=== PATIENT | female | born 1995 | race Caucasian/White ===

== ENCOUNTER 2020-03-31 12:37 | Outpatient (REF) | payer OTHER, SELFPAY ==
[2020-03-31 13:58] LABS: MANUAL DIFF FLAG NO
[2020-03-31 14:04] LABS: Basophils Percent Auto 0.6 % (0-2); Eosinophils Absolute Auto 0.2 X10*3/uL (0.0-0.4); Eosinophils Percent Auto 3.1 % (0-4); Hematocrit 41.1 % (37-47); Hemoglobin 13.6 g/dl (12.0-16.0); Imm Gran Abs Auto 0.02 X10*3/uL (0.00-0.03); Imm Gran Pct Auto 0.4 % (0.0-0.4); Lymphocytes Absolute Auto 2.4 X10*3/uL (1.2-4.9); Lymphocytes Percent Auto 43.9 % (20-40); Mean Corpuscular HGB Conc 33.1 g/dl (31.0-35.0); Mean Corpuscular Hemoglobin 30.4 pg (27.0-33.0); Mean Corpuscular Volume 91.7 fL (80-98); Monocytes Absolute Auto 0.3 X10*3/uL (0.1-1.2); Monocytes Percent Auto 5.7 % (2-11); Neutrophils Absolute Auto 2.5 X10*3/uL (2.0-8.3); Neutrophils Percent Auto 46.3 % (45-73); Platelet Count 320 X10*3/uL (160-400); Red Blood Count 4.48 X10*6/uL (4.20-5.50); Red Cell Distribution Width 11.9 % (11.0-16.0); White Blood Count 5.4 X10*3/uL (4.8-10.8)
[2020-03-31 14:43] LABS: Alanine Aminotransferase 7 U/L (0-31); Anion Gap 15 (12-20); Aspartate Amino Transferase 12 U/L (5-31); Blood Urea Nitrogen 13 mg/dL (9-16); Calcium 9.3 mg/dL (8.4-10.2); Carbon Dioxide 24 mmol/L (22-29); Chloride 106 mmol/L (96-108); Cholesterol 201 mg/dL; Estimated Glomerular Filt Rate > 60; Glucose Fasting 92 mg/dL (60-99); HDL Cholesterol 55 mg/dL; LDL Cholesterol Calculated 134 mg/dl; Potassium 4.3 mmol/l (3.3-5.1); Sodium 141 mmol/L (135-145); Triglycerides 64 mg/dL
[2020-03-31 14:47] LABS: Vitamin D 25-OH Total 43.9 ng/mL (>30)
== END 2020-03-31 12:38 | disposition home or self-care (01) ==
LOC: HO.HMGCLDS 12:37
PROVIDERS: PCP Internal Medicine; Visit Provider Internal Medicine
DX: Z00.01 Encounter for general adult medical examination with abnormal findings (principal); I10 Essential (primary) hypertension; E55.9 Vitamin D deficiency, unspecified
CPT/HCPCS: 36415; 80048; 80061; 82306; 84450; 84460; 85025

== ENCOUNTER 2020-08-27 08:38 | Outpatient (REF) | payer BC, SELFPAY ==
--- NOTE | ~2020-08-27 | XR_ITS ---
EXAMINATION: XR FINGER, RIGHT CLINICAL INFORMATION: Localized swelling, mass or lump right upper limb. COMPARISON: None. TECHNIQUE: 3 views of the right thumb. FINDINGS: There are small bone fragments seen adjacent to the base of proximal phalanx 1st digit at the MCP joint, likely from recent or old fracture. There is mild soft tissue swelling. The MCP joint space is preserved. The rest of the left thumb is unremarkable.. XR/XR finger RT min 2V IMPRESSION: Small fragments seen at the base of the proximal phalanx 1st digit, likely new versus old fracture fragments. There is mild soft tissue swelling, likely from acute event. Correlate with clinical history. The rest of the left thumb is unremarkable.
== END 2020-08-27 08:39 | disposition home or self-care (01) ==
LOC: HO.HMGCX 08:38
PROVIDERS: PCP Internal Medicine; Visit Provider Nurse Practitioner Family
DX: R22.31 Localized swelling, mass and lump, right upper limb (principal)
CPT/HCPCS: 73140

== ENCOUNTER 2020-09-18 05:35 | Outpatient (REF) | payer OTHER, SELFPAY ==
--- NOTE | ~2020-09-18 | XR_ITS ---
EXAMINATION: XR HAND, RIGHT CLINICAL INFORMATION: Right hand pain. COMPARISON: Right finger radiographs dated 08/27/2020. TECHNIQUE: PA, lateral, and oblique views of the right hand. FINDINGS: Redemonstration of osseous fragments adjacent to the base of the 1st proximal phalanx with unchanged anatomic alignment. No new fracture or dislocation. No joint space narrowing or marginal osteophytes. No osseous erosion. XR/XR hand RT min 3V IMPRESSION: Osseous fragments redemonstrated adjacent to the base of the 1st proximal phalanx in unchanged anatomic alignment.
== END 2020-09-18 05:36 | disposition home or self-care (01) ==
LOC: HO.HOSX 05:35
PROVIDERS: Visit Provider Physician Assistant
DX: S62.501A Fracture of unspecified phalanx of right thumb, initial encounter for closed fracture (principal); R22.31 Localized swelling, mass and lump, right upper limb; X58.XXXA Exposure to other specified factors, initial encounter; Y93.9 Activity, unspecified; Y92.9 Unspecified place or not applicable; Y99.9 Unspecified external cause status
CPT/HCPCS: 73130; 99202

== ENCOUNTER 2021-07-02 08:00 | Outpatient (REF) | payer OTHER, SELFPAY ==
[2021-07-02 08:33] LABS: IDNOW Serial# 16C4AD1C
[2021-07-02 08:34] LABS: COVID-19 Test Positive (Negative)
== END 2021-07-02 08:01 | disposition home or self-care (01) ==
LOC: HO.LAB 08:00
PROVIDERS: Visit Provider Internal Medicine
DX: Z20.822 Contact with and (suspected) exposure to COVID-19 (principal)
CPT/HCPCS: 87635; C9803

== ENCOUNTER 2022-03-19 09:11 | Outpatient (REF) | payer OTHER, SELFPAY ==
[2022-03-19 11:38] LABS: MANUAL DIFF FLAG NO
[2022-03-19 11:47] LABS: Basophils Percent Auto 0.7 % (0-2); Eosinophils Absolute Auto 0.2 X10*3/uL (0.0-0.4); Eosinophils Percent Auto 3.1 % (0-4); Hematocrit 43.4 % (37.0-47.0); Hemoglobin 14.5 g/dl (12.0-16.0); Imm Gran Abs Auto 0.02 X10*3/uL (0.00-0.03); Imm Gran Pct Auto 0.3 % (0.0-0.4); Lymphocytes Percent Auto 32.4 % (20-40); Mean Corpuscular HGB Conc 33.4 g/dl (31.0-35.0); Mean Corpuscular Hemoglobin 29.7 pg (27.0-33.0); Mean Corpuscular Volume 88.9 fL (80.0-98.0); Mean Platelet Volume 9.8 fL (9.4-12.3); Monocytes Absolute Auto 0.5 X10*3/uL (0.1-1.2); Neutrophils Absolute Auto 3.4 x10*3/uL (2.0-8.3); Neutrophils Percent Auto 55.5 % (45-73); Platelet Count 384 X10*3/uL (160-400); Red Blood Count 4.88 X10*6/uL (4.20-5.50); Red Cell Distribution Width 11.6 % (11.0-16.0); White Blood Count 6.1 X10*3/uL (4.8-10.8)
[2022-03-19 12:08] LABS: Alanine Aminotransferase 6 U/L (0-31); Anion Gap 13 (12-20); Aspartate Amino Transferase 13 U/L (5-31); Blood Urea Nitrogen 8 mg/dL (9-16); Calcium 9.4 mg/dL (8.4-10.2); Carbon Dioxide 26 mmol/L (22-29); Chloride 106 mmol/L (96-108); Cholesterol 194 mg/dL; Estimated Glomerular Filt Rate > 60; Glucose Fasting 91 mg/dL (60-99); HDL Cholesterol 60 mg/dL; LDL Cholesterol Calculated 126 mg/dl; Sodium 141 mmol/L (135-145); Triglycerides 41 mg/dL
[2022-03-19 12:28] LABS: Vitamin D 25-OH Total 41.9 ng/mL (>30)
== END 2022-03-19 09:12 | disposition home or self-care (01) ==
LOC: HO.HMGCLDS 09:11
PROVIDERS: PCP Internal Medicine; Visit Provider Internal Medicine
DX: Z00.01 Encounter for general adult medical examination with abnormal findings (principal); E55.9 Vitamin D deficiency, unspecified; G43.909 Migraine, unspecified, not intractable, without status migrainosus
CPT/HCPCS: 36415; 80048; 80061; 82306; 84450; 84460; 85025

== ENCOUNTER 2022-04-23 10:37 | Outpatient (AMB) | payer OTHER, SELFPAY ==
[2022-04-23 10:38] VITALS: BP 98/60; PULSE 96; O2SAT 98; BMI 26.1
--- NOTE | 2022-04-23 10:38 | MHC.PC.OV ---
Vital Signs 04/23/22 10:38 Height 5 ft 4 in Weight 152 lb BMI 26.1 BP 98/60 Blood Pressure Location Rt brachial Position Sitting Pulse 96 Pulse Source Pulse Oximeter Pulse Oximetry (%) 98 Oxygen Delivery Method Room Air Intake Visit Reasons: Transfer from [facility] in Intake Note: Pt is here today c/o UTI: burning sensation upon urination x1day Allergies house dust mite Allergy (Unknown, Verified 06/06/23 11:51) hives cats Allergy (Unknown, Uncoded 06/06/23 11:51) Sneezing Medication List - Last Reconciled 06/14/23 by Yamel Monroy MD albuterol sulfate 90 mcg/actuation 2 puffs inhalation Q6H PRN uzxmbai-minoflfffjozo-ltakjzda 250-250-65 mg (Excedrin Migraine) 1 tab PO Q4-6H PRN calcium carbonate-vitamin D3 600 mg-10 mcg (400 unit) caps PO etonogestrel (Nexplanon) subdermal sertraline 50 mg PO DAILY Tobacco use date assessed: 04/23/22 [facility] Transfer from [facility] Details 28-year-old lady here today for follow-up on her depression, started on sertraline 50 mg once a day a month ago. States that she has been feeling better, mood improved on sertraline denies any adverse effects from medication. Complains of urinary frequency urgency and dysuria present for the last 3 days, denies any accompanying fever, but does have discomfort over suprapubic area. [facility] Medical History (Updated 06/14/23 @ 13:58 by Yamel Monroy MD) Depression Fracture of thumb, closed Acne Vitamin D deficiency Migraine Surgical History Hx of tonsillectomy Family History Father No problems noted. Mother No problems noted. Maternal Grandmother Lung cancer Maternal Grandmother Cancer Paternal Grandfather CVD (cardiovascular disease) History of heart surgery Paternal Grandmother CVD (cardiovascular disease) History of heart surgery Brother No problems noted. Sister No problems noted. Social History Housing: House Alcohol intake: current Alcohol intake frequency: a few times a week Patient Tobacco Use Status: Never used Tobacco e-Cigarette/Vaping Use: Never Used service: No Current occupational status: employed Current occupation: left hand/ Dietitian aide Cognitive needs: No Hearing needs: No Vision needs: Yes Questionnaire PHQ-9 Over the last 2 weeks, how often have you been bothered by any of the following problems? 1. Little interest or pleasure in doing things: not at all 2. Feeling down, depressed, or hopeless: not at all 3. Trouble falling or staying asleep, or sleeping too much: several days 4. Feeling tired or having little energy: not at all 5. Poor appetite or overeating: not at all 6. Feeling bad about yourself - or that you are a failure or have let yourself or your family down: not at all 7. Trouble concentrating on things, such as reading the newspaper or watching television: not at all 8. Moving or speaking so slowly that other people could have noticed. Or the opposite - being so fidgety or restless that you have been moving around a lot more than usual: not at all 9. Thoughts that you would be better off or of hurting yourself in some way: not at all Total score: 1 Depression Screening Interpretation: Positive (Mood improved on sertraline) Depression Screening Follow-up: Existing condition and In treatment 18944 - PHQ-9 Billing: Yes Source: Developed by Drs. West Cifuentes, Irena Mike, Сергей Radford and colleagues, with an educational steve from [employer]. Thrive Questionnaire Date Thrive assessed: 03/19/22 MIRNA-7 AMB Questionnaire MIRNA-7 Date MIRNA - 7 assessed: 03/19/22 Source: Developed by Drs. West Cifuentes, Irena Mike, Сергей Radford and colleagues, with an educational steve from [employer]. Review of Systems Const All systems reviewed & are unremarkable except as noted in HPI and below Physical exam (Primary Care) Vital Signs: Last Vital Signs Pulse 96 04/23/22 10:38 BP 98/60 04/23/22 10:38 Pulse Ox 98 04/23/22 10:38 Oxygen Delivery Method Room Air 04/23/22 10:38 BMI result Body Mass Index 26.1 Tobacco/Smoking Status: Tobacco use Status Tobacco use date assessed 04/23/22 04/23/22 10:51 Patient Tobacco Use Status Never used Tobacco 04/23/22 10:39 e-Cigarette/Vaping Use Never Used 04/23/22 10:39 Depression Screening Interpretation: Positive (Mood improved on sertraline) Depression Screening Follow-up: Existing condition and In treatment Thrive Assessment: Date of Thrive Assessment Date Thrive assessed 03/19/22 04/23/22 10:39 Const Other: Alert oriented x3, no acute distress noted ambulatory normal gait HENMT Face and sinus: Yes face symmetric Mouth: moist mucous membranes Neck Neck: Yes full ROM, Yes no lymphadenopathy and Yes supple Thyroid: Thyroid normal Resp Auscultation: clear to auscultation bilaterally Cardio Other: S1-S2 present regular rate and rhythm GI Palpation (GI): Soft to palpation, nontender and no guarding Auscultation: normal bowel sounds General: Yes no CVA tenderness Back/Spine/Pelvis Back: no CVA tenderness Psych Appearance: grossly normal and well kempt Mental Status: mental status grossly normal Speech and movement: Normal speech and movement present Affect: normal affect Attitude: cooperative Thought process: Normal thought process present Thought content: Normal thought content present Results AMB Urinalysis Dipstick UR Leukocytes Last Edit by Anila Cai CMA on 04/23/22 10:46 UR Nitrite Negative Last Edit by Anila Cai CMA on 04/23/22 10:46 UR Urobilinogen 2 Last Edit by Anila Cai CMA on 04/23/22 10:46 UR Protein 30 Last Edit by Anila Cai CMA on 04/23/22 10:46 UR Ph 7.5 Last Edit by Anila Cai CMA on 04/23/22 10:46 UR Blood Large Last Edit by Anila Cai CMA on 04/23/22 10:46 UR Specific [place] 1.000 Last Edit by Anila Cai CMA on 04/23/22 10:46 UR Ketone Small Last Edit by Anila Cai CMA on 04/23/22 10:46 UR Bilirubin Small Last Edit by Anila Cai CMA on 04/23/22 10:46 UR Glucose Negative Last Edit by Anila Cai CMA on 04/23/22 10:46 Results Reviewed Results Reviewed: Laboratory Last Values Urine pH (Clinic) 7.5 04/23/22 10:44 Specific [place] (Clinic) 1.000 04/23/22 10:44 Ur Protein (Clinic) 30 04/23/22 10:44 Ur Ketones (Clinic) Small 04/23/22 10:44 Urine Blood (Clinic) Large 04/23/22 10:44 Urine Nitrite Negative 04/23/22 10:44 Urine Bilirubin (Clinic) Small 04/23/22 10:44 Urobilinogen (Clinic) 2 04/23/22 10:44 Urine Glucose (Clinic) Negative 04/23/22 10:44 Assessment and Plan Assessment & Plan (1) Depression: Code(s): F32.A - Depression, unspecified Qualifiers: Depression Type: reactive depression Qualified Code(s): F32.9 - Major depressive disorder, single episode, unspecified Plan: Doing well on sertraline, continued on present medication. (2) UTI (urinary tract infection): Code(s): N39.0 - Urinary tract infection, site not specified Qualifiers: Urinary tract infection type: acute cystitis Hematuria presence: with hematuria Qualified Code(s): N30.01 - Acute cystitis with hematuria Plan: Urine dipstick showed presence of urinary tract infection, prescription sent for Bactrim DS to take 1 tablet every 12 hours for 7 days, and prescription also sent for phenazopyridine 100 mg per tablet to take 1 tablet 3 times a day for 1 day only Orders: Orders AMB Urinalysis Dipstick 04/23/22 Z13.9 - Encounter for screening, unspecified Medications: New sulfamethoxazole-trimethoprim 800-160 mg (Bactrim DS) 1 tab PO Q12H 14 tabs 0RF phenazopyridine 100 mg PO TID 3 tabs 0RF Coding Level of Care Code Est Pt Level 3 (39553) Diagnoses Reactive depression F32.9 Depression Type: reactive depression Acute cystitis with hematuria N30.01 Urinary tract infection type: acute cystitis Hematuria presence: with hematuria
== END 2022-04-23 11:17 | disposition home or self-care (01) ==
PROVIDERS: PCP Internal Medicine; Visit Provider Internal Medicine
DX: F32.9 Major depressive disorder, single episode, unspecified (principal); N30.01 Acute cystitis with hematuria
CPT/HCPCS: 99499

== ENCOUNTER 2022-12-30 15:25 | Outpatient (AMB) | payer OTHER, SELFPAY ==
[2022-12-30 15:27] VITALS: BP 122/68; PULSE 98; TEMP 36.4; O2SAT 96; BMI 29.9
--- NOTE | 2022-12-30 15:27 | AM.OFFWIN_ITS ---
Intake Vital Signs 12/30/22 15:27 Height 5 ft 4 in Weight 174 lb 8 oz BMI 29.9 BP 122/68 Blood Pressure Location Rt brachial Position Sitting Pulse 98 Pulse Source Pulse Oximeter Temp 97.6 F Temp Source Temporal Artery Scan Pulse Oximetry (%) 96 Oxygen Delivery Method Room Air Intake Visit Reasons: EST/cold symp since tuesday(lobby masked) Intake Note: Pt presents to the office today for c/o cold symptoms. Pt states she has a cough,chest congestion, sinus pressure which started 12/25/22. Pt states he also has ear pain, and dizziness which started a few days ago. Patient Tobacco Use Status: Never used Tobacco Allergies house dust mite Allergy (Unknown, Verified 12/30/22 15:34) hives cats Allergy (Unknown, Uncoded 12/30/22 15:34) Sneezing HPI HPI Comments History of Present Illness Details 27-year-old female that presents with co ugh congestion upper respiratory symptoms times 5 days denies fever chills PFSH Medical History Depression Annual visit for general adult medical examination with abnormal findings Fracture of thumb, closed Acne Vitamin D deficiency Migraine Surgical History Hx of tonsillectomy Family History Father No problems noted. Mother No problems noted. Maternal Grandmother Lung cancer Maternal Grandmother Cancer Paternal Grandfather CVD (cardiovascular disease) History of heart surgery Paternal Grandmother CVD (cardiovascular disease) History of heart surgery Brother No problems noted. Sister No problems noted. Social History (Updated 12/30/22 @ 15:36 by Gwen Shrestha MA) Housing: House Alcohol intake: current Alcohol intake frequency: a few times a week Patient Tobacco Use Status: Never used Tobacco e-Cigarette/Vaping Use: Never Used service: No Current occupational status: employed Current occupation: left hand/ Dietitian aide Cognitive needs: No Hearing needs: No Vision needs: Yes Review of Systems ENT Reports sore throat Resp Reports chest congestion, Reports cough and Reports excessive phlegm production Physical Exam Vital Signs: Last Vital Signs Temp 97.6 F 12/30/22 15:27 Pulse 98 10/26/23 15:27 BP 122/68 12/30/22 15:27 Pulse Ox 96 12/30/22 15:27 Oxygen Delivery Method Room Air 12/30/22 15:27 BMI result Body Mass Index 29.9 Const General: cooperative, no acute distress and alert Orientation/consciousness: patient oriented x3 Limitations: no limitations HEENT Head: Yes normal to inspection Ears: hearing grossly normal bilaterally and external ears normal General nose exam: Normal external nose present Eyes General: appearance normal, both eyes and all related structures Neck Neck: Yes normal visual inspection Chest Chest palpation & inspection: normal inspection of the chest Resp Effort & Inspection: normal respiratory effort, able to speak in complete sentences and no audible wheezes Auscultation: clear to auscultation bilaterally Cardio Rate: regular rate Rhythm: regular rhythm GI Inspection: Yes normal to inspection Palpation (GI): Soft to palpation and nontender Skin General skin exam: no rashes or lesions noted Neuro General: patient oriented x3 Psych Appearance: grossly normal Mental Status: mental status grossly normal Speech and movement: Normal speech and movement present Affect: normal affect Attitude: cooperative Thought process: Normal thought process present Thought content: Normal thought content present Assessment & Plan Assessment & Plan (1) URI (upper respiratory infection): Code(s): J06.9 - Acute upper respiratory infection, unspecified Qualifiers: URI type: unspecified URI Qualified Code(s): J06.9 - Acute upper respiratory infection, unspecified Plan: Signs symptoms consistent with viral URI will swab for COVID for RSV and influenza. Will provide symptomatic treatment. Discharge instructions, follow up and treatment are discussed with patient in my usual fashion. Alternatives in treatment are also discussed. The patient will return for worsening symptoms or as needed. Advised that any labs/imaging ordered will be followed up on and contact made if further treatment needed. Counseled that patient's condition may require further evaluation and/or treatment. Symptoms of concern for worsening disorder discussed in detail in my customary manner. Patient does verbalize understanding of the plan, there are no apparent barriers to communication. The patient is given the opportunity to ask questions and have them answered to his/her satisfaction Orders: Orders SARS-CoV2/FLU/RSV Today R05.9 - Cough, unspecified Medications: New albuterol sulfate 90 mcg/actuation 2 puffs inhalation Q6H PRN 8.5 grams 0RF alexis rtness of breath or wheezing prednisone 40 mg (2 x 20 mg) PO DAILY 5 days 10 tabs 0RF benzonatate 100 mg PO BID PRN 10 caps 0RF cough Coding Level of Care Code Est Pt Level 3 (28006) Diagnoses Upper respiratory tract infection, unspecified type J06.9 URI type: unspecified URI
== END 2022-12-30 16:22 | disposition home or self-care (01) ==
PROVIDERS: PCP Internal Medicine; Visit Provider Physician Assistant
DX: J06.9 Acute upper respiratory infection, unspecified (principal)
CPT/HCPCS: 99213

== ENCOUNTER 2022-12-30 16:17 | Outpatient (REF) | payer OTHER, SELFPAY ==
[2022-12-31 12:08] LABS: Influenza A PCR NEGATIVE (Negative); Influenza B PCR NEGATIVE (Negative); Resp Syncy Virus RNA Qual PCR NEGATIVE (Negative); SARS COV2 PCR INHOUSE NEGATIVE (Negative)
== END 2022-12-30 16:18 | disposition home or self-care (01) ==
LOC: HO.LAB 16:17
PROVIDERS: Visit Provider Physician Assistant
DX: R05.9 Cough, unspecified (principal); Z11.52 Encounter for screening for COVID-19
CPT/HCPCS: 0241U

== ENCOUNTER 2023-07-11 11:50 | Outpatient (AMB) | payer OTHER, SELFPAY ==
--- NOTE | 2023-06-06 11:51 | MHC.PC.OV ---
Vital Signs 06/06/23 11:51 Height 5 ft 4 in Intake Visit Reasons: Annual PE Intake Note: Pt is here today for PE. Allergies house dust mite Allergy (Unknown, Verified 06/06/23 11:51) hives cats Allergy (Unknown, Uncoded 06/06/23 11:51) Sneezing Tobacco use date assessed: 04/23/22 [facility] Medical History Depression Annual visit for general adult medical examination with abnormal findings Fracture of thumb, closed Acne Vitamin D deficiency Migraine Surgical History Hx of tonsillectomy Family History Father No problems noted. Mother No problems noted. Maternal Grandmother Lung cancer Maternal Grandmother Cancer Paternal Grandfather CVD (cardiovascular disease) History of heart surgery Paternal Grandmother CVD (cardiovascular disease) History of heart surgery Brother No problems noted. Sister No problems noted. Social History (Updated 12/30/22 @ 15:36 by Gwen Shrestha CMA) Housing: House Alcohol intake: current Alcohol intake frequency: a few times a week Patient Tobacco Use Status: Never used Tobacco e-Cigarette/Vaping Use: Never Used service: No Current occupational status: employed Current occupation: left hand/ Dietitian aide Cognitive needs: No Hearing needs: No Vision needs: Yes Questionnaire Thrive Questionnaire Date Thrive assessed: 03/19/22 MIRNA-7 AMB Questionnaire MIRNA-7 Date MIRNA - 7 assessed: 03/19/22 Source: Developed by Drs. West Cifuentes, Irena Mike, Сергей Radford and colleagues, with an educational steve from [employer]. Physical exam (Primary Care) Tobacco/Smoking Status: Tobacco use Status Tobacco use date assessed 04/23/22 04/23/22 10:51 Patient Tobacco Use Status Never used Tobacco 12/30/22 15:36 e-Cigarette/Vaping Use Never Used 12/30/22 15:36 Thrive Assessment: Date of Thrive Assessment Date Thrive assessed 03/19/22 04/23/22 10:39 Coding
[2023-07-11 11:54] VITALS: BP 108/68; PULSE 85; O2SAT 98; BMI 31.8
--- NOTE | 2023-07-11 11:54 | A.OFFPC_ITS ---
Vital Signs 06/06/23 11:51 07/11/23 11:54 Height 5 ft 4 in 5 ft 4 in Weight 185 lb BMI 31.8 BP 108/68 Blood Pressure Location Rt brachial Position Sitting Pulse 85 Pulse Source Pulse Oximeter Pulse Oximetry (%) 98 Oxygen Delivery Method Room Air Intake Visit Reasons: Annual PE Intake Note: Pt is here today for her annual physical. Last pap 12/19/19 Last flu shot 02/10/23 Allergies house dust mite Allergy (Unknown, Verified 07/11/23 12:35) hives cats Allergy (Unknown, Uncoded 07/11/23 12:35) Sneezing Medication List - Last Reconciled 07/11/23 by Yamel Monroy MD [id number] 250-250-65 mg (Excedrin Migraine) 1 tab PO Q4-6H PRN cholecalciferol (vitamin D3) 50 mcg PO DAILY etonogestrel (Nexplanon) subdermal sertraline 50 mg PO DAILY zaleplon 10 mg PO BEDTIME PRN Tobacco use date assessed: 07/11/23 Dental Screening Dental Screen Date: 07/11/23 Did you have a dental visit in the last 12 months?: Yes Did you have a dental problem in the last 6 months where you did not have access to dental care?: No Was dental information given to patient?: Patient has dentist HPI Annual PE HPI Details 28-year-old lady here today for physical exam. She goes [facility] for [facility] and pelvic exam, states that she had one at [facility] in 2021, results unavailable to me at present. She uses Nexplanon as a control, placed 2 years ago. She has depression currently stable and controlled on sertraline, now sees a psych provider online, Holger Renteria, who has also started her on zaleplon 10 mg at bedtime as needed for difficulty sleeping. And would like to continue to follow-up with him for her depression treatment.. She takes Excedrin for migraine headaches, which has been occurring infrequently [facility] Medical History Depression Fracture of thumb, closed Acne Vitamin D deficiency Migraine Surgical History Hx of tonsillectomy Family History Father No problems noted. Mother No problems noted. Maternal Grandmother Lung cancer Maternal Grandmother Cancer Paternal Grandfather CVD (cardiovascular disease) History of heart surgery Paternal Grandmother CVD (cardiovascular disease) History of heart surgery Brother No problems noted. Sister No problems noted. Social History Housing: House Alcohol intake: current Alcohol intake frequency: a few times a week Alcohol type: hard liquor Comment: Whiskoksana Patient Tobacco Use Status: Never used Tobacco e-Cigarette/Vaping Use: Never Used service: No Current occupational status: employed Current occupation: left hand/ Dietitian aide Cognitive needs: No Hearing needs: No Vision needs: Yes Female Reproductive History Menstrual Other: Goes to [facility] Questionnaire PHQ-9 Over the last 2 weeks, how often have you been bothered by any of the following problems? 1. Little interest or pleasure in doing things: not at all 2. Feeling down, depressed, or hopeless: not at all 3. Trouble falling or staying asleep, or sleeping too much: several days 4. Feeling tired or having little energy: not at all 5. Poor appetite or overeating: several days 6. Feeling bad about yourself - or that you are a failure or have let yourself or your family down: not at all 7. Trouble concentrating on things, such as reading the newspaper or watching television: not at all 8. Moving or speaking so slowly that other people could have noticed. Or the opposite - being so fidgety or restless that you have been moving around a lot more than usual: not at all 9. Thoughts that you would be better off or of hurting yourself in some way: not at all Total score: 2 Depression Screening Interpretation: Positive (Controlled on sertraline, currently sees psych/therapist, Holger Renteria) Depression Screening Follow-up: Existing condition, In treatment and Community Mental Health Worker F/U Depression Screening Done: Yes 37752 - PHQ-9 Billing: Yes Source: Developed by Drs. West Cifuentes, Irena Mike, Сергей Radford and colleagues, with an educational steve from [employer]. Thrive Questionnaire Date Thrive assessed: 07/11/23 I am a: Patient What is your living situation today?: I have a steady place to live Within the past 12 months, did the food you bought not last and you didn't have the money to get more?: Never true Within the past 12 months, did you worry whether your food would run out before you got money to buy more?: Never true Do you have trouble paying for medicines?: No Do you have trouble getting transportation to medical appointments?: No Do you have trouble paying your heating and electricity bill?: No Do you have trouble taking care of your child, family member or friend?: No Do you have trouble with day-to-day activities such as bathing, preparing meals, shopping, managing finances, etc.?: No Are you currently unemployed and looking for a job?: No Are you interested in more education?: No THRIVE Score: 0 AUDIT C Alcohol Use Questionnaire (AUDIT-C) 1. How often do you have a drink containing alcohol?: 2-4 times a month 2. How many drinks containing alcohol do you have on a typical day when you are drinking?: 1 or 2 3. How often do you have six or more drinks on one occasion?: Never Total Score: 2 Score Reviewed/Action Taken: Yes MIRNA-7 AMB Questionnaire MIRNA-7 Date MIRNA - 7 assessed: 07/11/23 Feeling nervous, anxious, or on edge: 0 = Not at all Not being able to stop or control worryin = Not at all Worrying too much about different things: 0 = Not at all Trouble relaxin = Not at all Being so restless that it is hard to sit still: 0 = Not at all Becoming easily annoyed or irritable: 0 = Not at all Feeling afraid as if something awful might happen: 0 = Not at all Total MIRNA-7 score (0-4 normal; 5-9 mild; 10-14 moderate; 15-21 severe): 0 Source: Developed by Drs. West Cifuentes, Irena Mike, Сергей Radford and colleagues, with an educational steve from [employer]. MIRNA-7 Assessment Billing MIRNA-7 Assessment Tool: MIRNA-7 Assessment 17216 Review of Systems Const Denies body aches, Denies fatigue, Denies fever(s) and Denies weakness Eyes Details: Sees [facility] Denies change in vision ENT Denies dizziness, Denies nasal congestion, Denies nasal discharge and Denies sore throat Card Denies chest pain, Denies lightheadedness, Denies palpitations and Denies dyspnea Resp Denies chest congestion, Denies cough, Denies dyspnea and Denies wheezing GI Denies abdominal pain, Denies change in bowel habits and Denies heartburn Details: Goes to [facility] for her routine Pap and pelvic exam, last Pap was in 2021, per patient Denies urinary frequency, Denies dysuria and Denies urinary urgency Musc Reports no additional complaints Skin/Breast Denies lesions and Denies rash Neuro Denies dizziness and Denies weakness Psych Reports as per HPI Endo Denies fatigue, Denies polydipsia, Denies polyuria and Denies palpitations Shaq/Lymph Denies easy bruising Aller/Immun Denies seasonal rhinorrhea and Denies wheezing Physical exam (Primary Care) Vital Signs: Last Vital Signs Pulse 85 07/11/23 11:54 BP 108/68 07/11/23 11:54 Pulse Ox 98 07/11/23 11:54 Oxygen Delivery Method Room Air 07/11/23 11:54 BMI result Body Mass Index 31.8 Tobacco/Smoking Status: Tobacco use Status Tobacco use date assessed 07/11/23 07/11/23 11:56 Patient Tobacco Use Status Never used Tobacco 07/11/23 12:41 e-Cigarette/Vaping Use Never Used 07/11/23 12:41 Depression Screening Interpretation: Positive (Controlled on sertraline, currently sees psych/therapist, Holger Renteria) Depression Screening Follow-up: Existing condition, In treatment and Community Mental Health Worker F/U Thrive Assessment: Date of Thrive Assessment Date Thrive assessed 03/19/22 07/11/23 11:56 Const Other: Alert oriented x3, no acute distress noted ambulatory normal gait Orientation/consciousness: patient oriented x3 HENMT Face and sinus: Yes face symmetric Mouth: moist mucous membranes Neck Neck: Yes full ROM, Yes no lymphadenopathy and Yes supple Thyroid: Thyroid normal Chest Chest palpation & inspection: normal inspection of the chest Breast/axilla inspection: normal inspection of the breasts Breast/axilla palpation: normal palpation of the breasts Resp Auscultation: clear to auscultation bilaterally Cardio Other: S1-S2 present regular rate and rhythm GI Palpation (GI): Soft to palpation, nontender and no guarding Auscultation: normal bowel sounds General: Yes no CVA tenderness Back/Spine/Pelvis Back: no CVA tenderness Skin General skin exam: no rashes or lesions noted Neuro General: patient oriented x3, gait normal, tone normal, moves all extremities, no focal motor deficits and CN's II-XI intact bilaterally Cognition (Neuro): normal cognition Gait exam (Neuro): Normal gait present Extrem General: Yes full ROM, Yes no joint enlargement, Yes no clubbing, cyanosis or edema, Yes no calf tenderness and Yes normal gait Psych Appearance: grossly normal and well kempt Mental Status: mental status grossly normal Speech and movement: Normal speech and movement present Affect: normal affect Attitude: cooperative Thought process: Normal thought process present Thought content: Normal thought content present Assessment and Plan Assessment & Plan (1) Migraine: Code(s): G43.909 - Migraine, unspecified, not intractable, without status migrainosus Qualifiers: Intractability: not intractable Migraine type: without aura Status migrainosus presence: without status migrainosus Qualified Code(s): G43.009 - Migraine without aura, not intractable, without status migrainosus Plan: Takes Excedrin tablets which has been helping (2) Depression: Code(s): F32.A - Depression, unspecified Qualifiers: Depression Type: reactive depression Qualified Code(s): F32.9 - Major depressive disorder, single episode, unspecified Plan: Now followed by Holger Renteria, currently stable and controlled on sertraline and on zaleplon for her insomnia (3) Annual visit for general adult medical examination with abnormal findings: Code(s): Z00.01 - Encounter for general adult medical examination with abnormal findings Plan: Will check appropriate labs. Continue dental visit every 6 months and regular eye exams, goes to [facility] Take adequate calcium in diet and vitamin-D 3 at 2000 IU per cap once a day, in addition to weight-bearing exercises to help maintain good muscle tone and weight control. Instructed to do self-breast exam, and recommended to get yearly mammogram, starting at age 40. Gets her routine Pap and pelvic exam from her [facility]. Up-to-date with all her vaccine Orders: Orders Basic Metabolic Panel Fasting Today E66.9 - Obesity, unspecified, F32.9 - Major depressive disorder, single episode, unspecified, G43.009 - Migraine without aura, not intractable, without status migrainosus, Z00.01 - Encounter for general adult medical examination with abnormal findings Lipid Panel Today E66.9 - Obesity, unspecified, F32.9 - Major depressive disor cinthia, single episode, unspecified, G43.009 - Migraine without aura, not intractable, without status migrainosus, Z00.01 - Encounter for general adult medical examination with abnormal findings Vitamin D 25-OH Total Today E66.9 - Obesity, unspecified, F32.9 - Major depressive disorder, single episode, unspecified, G43.009 - Migraine without aura, not intractable, without status migrainosus, Z00.01 - Encounter for general adult medical examination with abnormal findings Alanine Aminotransferase Today E66.9 - Obesity, unspecified, F32.9 - Major depressive disorder, single episode, unspecified, G43.009 - Migraine without aura, not intractable, without status migrainosus, Z00.01 - Encounter for general adult medical examination with abnormal findings Complete Blood Count Auto Diff Today E66.9 - Obesity, unspecified, F32.9 - Major depressive disorder, single episode, unspecified, G43.009 - Migraine without aura, not intractable, without status migrainosus, Z00.01 - Encounter for general adult medical examination with abnormal findings Aspartate Amino Transferase Today E66.9 - Obesity, unspecified, F32.9 - Major depressive disorder, single episode, unspecified, G43.009 - Migraine without aura, not intractable, without status migrainosus, Z00.01 - Encounter for general adult medical examination with abnormal findings Coding Level of Care Code Est Pt Prev Care 18-39y(38085) Diagnoses Migraine without aura and without status migrainosus, not intractable G43.009 Intractability: not intractable Migraine type: without aura Status migrainosus presence: without status migrainosus Reactive depression F32.9 Depression Type: reactive depression Annual visit for general adult medical examination with abnormal findings Z00.01 Additional Codes MIRNA-7 Assessment Billing - MIRNA-7 Assessment Tool: MIRNA-7 Assessment 87173 ([id number])
== END 2023-07-11 12:47 | disposition home or self-care (01) ==
PROVIDERS: PCP Internal Medicine; Visit Provider Internal Medicine
DX: Z00.00 Encounter for general adult medical examination without abnormal findings (principal); G43.009 Migraine without aura, not intractable, without status migrainosus; F32.A Depression, unspecified
CPT/HCPCS: 99395

== ENCOUNTER 2023-07-11 12:49 | Outpatient (REF) | payer OTHER, SELFPAY ==
[2023-07-11 16:12] LABS: MANUAL DIFF FLAG NO
[2023-07-11 16:29] LABS: Basophils Percent Auto 0.6 % (0-2); Eosinophils Absolute Auto 0.3 X10*3/uL (0.0-0.4); Eosinophils Percent Auto 4.7 % (0-4); Hematocrit 44.8 % (37.0-47.0); Imm Gran Abs Auto 0.02 X10*3/uL (0.00-0.03); Imm Gran Pct Auto 0.3 % (0.0-0.4); Lymphocytes Absolute Auto 2.4 X10*3/uL (1.2-4.9); Mean Corpuscular HGB Conc 33.5 g/dl (31.0-35.0); Mean Corpuscular Hemoglobin 29.6 pg (27.0-33.0); Mean Corpuscular Volume 88.4 fL (80.0-98.0); Mean Platelet Volume 10.1 fL (9.4-12.3); Monocytes Absolute Auto 0.5 X10*3/uL (0.1-1.2); Monocytes Percent Auto 7.7 % (2-11); Neutrophils Absolute Auto 3.1 x10*3/uL (2.0-8.3); Neutrophils Percent Auto 48.7 % (45-73); Platelet Count 364 X10*3/uL (160-400); Red Blood Count 5.07 X10*6/uL (4.20-5.50); Red Cell Distribution Width 12.1 % (11.0-16.0); White Blood Count 6.4 X10*3/uL (4.8-10.8)
[2023-07-11 17:10] LABS: Alanine Aminotransferase 9 U/L (0-31); Anion Gap 15 (12-20); Aspartate Amino Transferase 16 U/L (5-31); Blood Urea Nitrogen 11 mg/dL (9-16); Calcium 9.5 mg/dL (8.4-10.2); Carbon Dioxide 21 mmol/L (22-29); Chloride 109 mmol/L (96-108); Cholesterol 186 mg/dL (<200); Estimated Glomerular Filt Rate > 60; Glucose Fasting 90 mg/dL (60-99); HDL Cholesterol 55 mg/dL (>40); LDL Cholesterol Calculated 112 mg/dL (<100); Potassium 3.9 mmol/L (3.3-5.1); Sodium 141 mmol/L (135-145); Triglycerides 97 mg/dL (<150)
[2023-07-11 17:27] LABS: Vitamin D 25-OH Total 75.4 ng/mL (>30)
== END 2023-07-11 12:50 | disposition home or self-care (01) ==
LOC: HO.HMGCLDS 12:49
PROVIDERS: PCP Internal Medicine; Visit Provider Internal Medicine
DX: Z00.01 Encounter for general adult medical examination with abnormal findings (principal); G43.009 Migraine without aura, not intractable, without status migrainosus; F32.9 Major depressive disorder, single episode, unspecified; E66.9 Obesity, unspecified
CPT/HCPCS: 36415; 80048; 80061; 82306; 84450; 84460; 85025

== ENCOUNTER 2023-07-25 11:19 | Outpatient (AMB) | payer OTHER, SELFPAY ==
[2023-07-25 11:24] VITALS: BP 124/92; PULSE 94; O2SAT 93; BMI 31.7
--- NOTE | 2023-07-25 11:24 | AM.OFFWIN_ITS ---
Intake Vital Signs 07/25/23 11:24 Height 5 ft 4 in Weight 184 lb 8 oz BMI 31.7 BP 124/92 H Blood Pressure Location Lt brachial Position Sitting Pulse 94 Pulse Source Pulse Oximeter Pulse Oximetry (%) 93 Oxygen Delivery Method Room Air Intake Visit Reasons: Chest wall pain Intake Note: pt is here today Lt side rib pain started 2 days ago Patient Tobacco Use Status: Never used Tobacco Allergies house dust mite Allergy (Unknown, Verified 07/25/23 11:43) hives cats Allergy (Unknown, Uncoded 07/11/23 12:35) Sneezing Do you need a note to return to daycare/school/sports/work: No HPI Chest Pain Most Recent Cardiac Tests: Chest X-Ray 07/25/23 HPI Comments History of Present Illness Details 22-year-old female presents to the [facility] for a sick visit. Patient is complaining of pain on the left side of the chest for the past 3 days. Does not recall any fall or injury. Pain is is along the lower ribs. No visible rash. Patient feels the pain worsening when she lies down on the left side of the chest. [facility] Medical History Depression Fracture of thumb, closed Acne Vitamin D deficiency Migraine Surgical History Hx of tonsillectomy Family History Father No problems noted. Mother No problems noted. Maternal Grandmother Lung cancer Maternal Grandmother Cancer Paternal Grandfather CVD (cardiovascular disease) History of heart surgery Paternal Grandmother CVD (cardiovascular disease) History of heart surgery Brother No problems noted. Sister No problems noted. Social History Housing: House Alcohol intake: current Alcohol intake frequency: a few times a week Alcohol type: hard liquor Comment: Whiskey Patient Tobacco Use Status: Never used Tobacco e-Cigarette/Vaping Use: Never Used service: No Current occupational status: employed Current occupation: left hand/ Dietitian aide Cognitive needs: No Hearing needs: No Vision needs: Yes Physical Exam Vital Signs: Last Vital Signs Pulse 94 07/25/23 11:24 BP 124/92 H 07/25/23 11:24 Pulse Ox 93 07/25/23 11:24 Oxygen Delivery Method Room Air 07/25/23 11:24 BMI result Body Mass Index 31.7 Const General: cooperative and healthy appearing Nutritional Appearance: well nourished Orientation/consciousness: patient oriented x3 Limitations: no limitations HEENT Head: Yes normal to inspection Eyes General: appearance normal, both eyes and all related structures Neck Neck: Yes normal visual inspection Chest Other: No visible bruising. Tenderness on palpation of the 10th 11th and 12th rib. Diminished breath sounds bilateral bases. Resp Effort & Inspection: normal respiratory effort Neuro General: patient oriented x3 Assessment & Plan Assessment & Plan (1) Chest wall pain: Code(s): R07.89 - Other chest pain (2) Chest wall pain: Code(s): R07.89 - Other chest pain Plan X ray images personally revd by me. Diaghragm seems pushed upward on the left side. Will await official reading. Continue PPI Orders: Orders XR chest 2V 07/25/23 R05.9 - Cough, unspecified Medications: New pantoprazole 40 mg PO DAILY 30 tabs 0RF Coding Level of Care Code Est Pt Level 4 (76167) Diagnoses Chest wall pain R07.89
== END 2023-07-25 12:58 | disposition home or self-care (01) ==
PROVIDERS: PCP Internal Medicine; Visit Provider Internal Medicine
DX: R07.89 Other chest pain (principal)
CPT/HCPCS: 99214

== ENCOUNTER 2023-07-25 12:25 | Outpatient (REF) | payer OTHER, SELFPAY ==
--- NOTE | ~2023-07-25 | XR_ITS ---
EXAMINATION: XR CHEST, 2 VIEWS CLINICAL INFORMATION: Cough COMPARISON: None. TECHNIQUE: PA and lateral views of the chest were obtained. FINDINGS: Linear bibasilar atelectasis. Borderline low lung volumes. Blunting of the posterior costophrenic sulci. No additional findings of effusion. Cardiac and mediastinal contours are normal. No consolidation or pneumothorax. Pulmonary vasculature is unremarkable. Trachea is midline. Osseous structures are unremarkable. XR/XR chest 2V IMPRESSION: Borderline low lung volumes with bibasilar atelectasis. Blunting of the posterior costophrenic sulci could be due to trace effusions are focal atelectasis. Otherwise, no acute pulmonary findings.
== END 2023-07-25 12:26 | disposition home or self-care (01) ==
LOC: HO.HMGCX 12:25
PROVIDERS: PCP Internal Medicine; Visit Provider Internal Medicine
DX: R05.9 Cough, unspecified (principal)
CPT/HCPCS: 71046

== ENCOUNTER 2023-09-18 19:26 | Emergency (ER) | payer OTHER, SELFPAY ==
[2023-09-18 19:36] VITALS: BP 134/93; PULSE 80; RESP 18; TEMP 36.6; O2SAT 97; BMI 32.8
[2023-09-18 20:19] VITALS: BP 123/86; PULSE 98; RESP 18; TEMP 36.6; O2SAT 100
--- NOTE | 2023-09-18 21:40 | ED_ITS ---
HPI - Wound/Laceration General Chief Complaint: Wound/Laceration Stated Complaint: rt hand thumb tip cut Time Seen by Provider: 09/18/23 21:10 Source: patient Mode of arrival: ambulatory Limitations: no limitations History of Present Illness ED Provider: lindsay STALLINGS narrative: Patient has got superficial flap laceration at the tip of right thumb while cutting vegetables patient is up-to-date in tetanus no other injuries Related Data Home Medications ?Medication ?Instructions ?Recorded ?Confirmed [id number] 250 1 tab PO Q4-6H PRN 03/31/20 03/19/22 mg-250 mg-65 mg tablet (Excedrin Migraine) etonogestrel 68 mg subdermal subdermal 03/31/20 03/19/22 implant (Nexplanon) cholecalciferol (vitamin D3) 50 50 mcg PO DAILY 07/11/23 07/11/23 mcg (2,000 unit) capsule zaleplon 10 mg capsule 10 mg PO BEDTIME PRN 07/11/23 Previous Rx's ?Medication ?Instructions ?Recorded sertraline 50 mg tablet 50 mg PO DAILY #90 tabs 06/14/23 pantoprazole 40 mg tablet,delayed 40 mg PO DAILY #30 tabs 07/25/23 release Allergies Allergy/AdvReac Type Severity Reaction Status Date / Time house dust mite Allergy Unknown hives Verified 09/18/23 19:36 cats Allergy Unknown Sneezing Uncoded 09/18/23 19:36 Review of Systems 2 Review of Systems: Yes all other systems are reviewed and are negative PMFSH Past Medical History Medical History Depression Fracture of thumb, closed Acne Vitamin D deficiency Migraine Surgical History Hx of tonsillectomy Family History Family History Father No problems noted. Mother No problems noted. Maternal Grandmother Lung cancer Maternal Grandmother Cancer Paternal Grandfather CVD (cardiovascular disease) History of heart surgery Paternal Grandmother CVD (cardiovascular disease) History of heart surgery Brother No problems noted. Sister No problems noted. Social History Social History Housing: House Alcohol intake: current Alcohol intake frequency: a few times a week Alcohol type: hard liquor Comment: Whiskey Patient Tobacco Use Status: Never used Tobacco e-Cigarette/Vaping Use: Never Used Advance Directives: No Advance Directives Information Provided: No service: No Current occupational status: employed Current occupation: left hand/ Dietitian aide Cognitive needs: No Hearing needs: No Vision needs: Yes Physical Exam 2 Vital Signs: Vital Signs: Last Vital Signs Temp 97.9 F 09/18/23 20:19 Pulse 98 09/18/23 20:19 Resp 18 09/18/23 20:19 BP 123/86 09/18/23 20:19 Pulse Ox 100 09/18/23 20:19 O2 Del Method Room Air 09/18/23 20:19 BMI result Body Mass Index 32.8 Extrem: Hand/finger images: 1. Superficial flap laceration at the tip of right thumb with minor bleeding nail intact deeper instructed intact neurovascular intact Procedures Laceration Laceration 1: Site: hand (Thumb) Side (If applicable): right Size (cm): 0.5 Description: flap Depth: simple, single layer Skin layer closed with: other (Skin glue) Discharge Plan Discharge Clinical Impression: Laceration of right thumb Patient Disposition: Home, Self-Care Instructions: Laceration (ED) Additional Instructions: Local care as advised Do not soak your thumb in water for long Prescriptions: No Action sertraline 50 mg tablet 50 mg PO DAILY Qty: 90 1RF Nexplanon 68 mg implant subdermal Excedrin Migraine 250-250-65 mg tablet 1 tab PO Q4-6H PRN zaleplon 10 mg capsule 10 mg PO BEDTIME PRN cholecalciferol (vitamin D3) 50 mcg (2,000 unit) capsule 50 mcg PO DAILY pantoprazole 40 mg tablet,delayed release (DR/EC) 40 mg PO DAILY Qty: 30 0RF Print Language: [place]
[2023-09-18 22:15] VITALS: BP 123/86; PULSE 98; RESP 18; TEMP 36.6; O2SAT 100
== END 2023-09-18 22:16 | disposition home or self-care (01) ==
PROVIDERS: Emergency Provider Internal Medicine; PCP Internal Medicine
DX: S61.011A Laceration without foreign body of right thumb without damage to nail, initial encounter (principal); M79.641 Pain in right hand; W26.0XXA Contact with knife, initial encounter; Y93.G3 Activity, cooking and baking; Y92.89 Other specified places as the place of occurrence of the external cause; Y99.8 Other external cause status; Z79.899 Other long term (current) drug therapy
CPT/HCPCS: 12001; 99283; 99284

== ENCOUNTER 2024-07-18 10:57 | Outpatient (AMB) | payer OTHER, SELFPAY ==
--- NOTE | 2024-07-18 11:43 | A.OFFPC_ITS ---
Vital Signs 07/18/24 11:44 Height 5 ft 4 in Weight 178 lb BMI 30.6 BP 120/86 Blood Pressure Location Lt brachial Position Sitting Respiration 16 Pulse 72 Pulse Source Pulse Oximeter Temp 98.0 F Temp Source Oral Pulse Oximetry (%) 99 Oxygen Delivery Method Room Air Intake Visit Reasons: Annual PE-update pcp Intake Note: Pt is here today for her PE: Allergies house dust mite Allergy (Unknown, Verified 07/30/24 15:57) hives cats Allergy (Unknown, Uncoded 07/30/24 15:57) Sneezing Medication List - Last Reconciled 07/18/24 by Yamel Monroy MD xzdzmam-nwsnyfrzhcvdp-bkonvpci 250-250-65 mg (Excedrin Migraine) 1 tab PO Q4-6H PRN etonogestrel (Nexplanon) subdermal zaleplon 10 mg PO BEDTIME PRN Tobacco use date assessed: 07/18/24 Dental Screening Dental Screen Date: 07/18/24 Did you have a dental visit in the last 12 months?: Yes Did you have a dental problem in the last 6 months where you did not have access to dental care?: No Was dental information given to patient?: Patient has dentist HPI Annual PE-update pcp HPI Details - The patient is a 29-year-old female pr esenting for her physical exam - She requires an updated Pap smear as t he last one was done in 2019 with normal results. She has no history of abnormal Pap smears. - She has a history of menstrual migrain es, with no identified triggers during tracking efforts. - Anemia was present in the past due to an infection, but recent CBC and potassium levels have been normal. - Insomnia is managed with Zaleplon , p rescribed by her psychiatrist. - Intertrigo treatment includes antifung al and anti-inflammatory cream due to under-breast rash from excessive sweating. - She has been using Nexplanon for four years and it's due for replacement next year. The monitoring continues with the next planned removal and reinsertion. - She has regular vaccinations inclusive of COVID-19, Tetanus, hepatitis, rabies, and makes use of seasonal flu shots. [facility] Medical History (Updated 07/18/24 @ 12:12 by Yamel Monroy MD) Insomnia Intertrigo History of depression Fracture of thumb, closed Acne Vitamin D deficiency Migraine Surgical History Hx of tonsillectomy Family History Father No problems noted. Mother No problems noted. Maternal Grandmother Lung cancer Maternal Grandmother Cancer Paternal Grandfather CVD (cardiovascular disease) History of heart surgery Paternal Grandmother CVD (cardiovascular disease) History of heart surgery Brother No problems noted. Sister No problems noted. Social History Housing: House Alcohol intake: current Alcohol intake frequency: a few times a week Alcohol type: hard liquor Comment: Whiskey Patient Tobacco Use Status: Never used Tobacco e-Cigarette/Vaping Use: Never Used service: No Current occupational status: employed Current occupation: left hand/ Dietitian aide Cognitive needs: No Hearing needs: No Vision needs: Yes Questionnaire PHQ-9 Over the last 2 weeks, how often have you been bothered by any of the following problems? 1. Little interest or pleasure in doing things: not at all 2. Feeling down, depressed, or hopeless: not at all 3. Trouble falling or staying asleep, or sleeping too much: not at all 4. Feeling tired or having little energy: several days 5. Poor appetite or overeating: not at all 6. Feeling bad about yourself - or that you are a failure or have let yourself or your family down: not at all 7. Trouble concentrating on things, such as reading the newspaper or watching television: not at all 8. Moving or speaking so slowly that other people could have noticed. Or the opposite - being so fidgety or restless that you have been moving around a lot more than usual: not at all 9. Thoughts that you would be better off or of hurting yourself in some way: not at all Total score: 1 Depression Screening Interpretation: Negative Depression Screening Done: Yes 82980 - PHQ-9 Billing: Yes Source: Developed by Drs. West Cifuentes, Irena Mike, Сергей Radford and colleagues, with an educational steve from [employer]. Thrive Questionnaire Date Thrive assessed: 07/18/24 I am a: Patient What is your living situation today?: I have a steady place to live Within the past 12 months, did the food you bought not last and you didn't have the money to get more?: Never true Within the past 12 months, did you worry whether your food would run out before you got money to buy more?: Never true Do you have trouble paying for medicines?: No Do you have trouble getting transportation to medical appointments?: No Do you have trouble paying your heating and electricity bill?: No Do you have trouble taking care of your child, family member or friend?: No Do you have trouble with day-to-day activities such as bathing, preparing meals, shopping, managing finances, etc.?: No Are you currently unemployed and looking for a job?: No Are you interested in more education?: No Please select the resources that you would like help with: None Currently or been in a relationship where the following occur: No concerns reported THRIVE Score: 0 AUDIT C Alcohol Use Questionnaire (AUDIT-C) 1. How often do you have a drink containing alcohol?: 2-3 times a week 2. How many drinks containing alcohol do you have on a typical day when you are drinking?: 3 or 4 3. How often do you have six or more drinks on one occasion?: Less than monthly Total Score: 5 MIRNA-7 AMB Questionnaire MIRNA-7 Date MIRNA - 7 assessed: 07/18/24 Feeling nervous, anxious, or on edge: 0 = Not at all Not being able to stop or control worryin = Not at all Worrying too much about different things: 0 = Not at all Trouble relaxin = Not at all Being so restless that it is hard to sit still: 0 = Not at all Becoming easily annoyed or irritable: 0 = Not at all Feeling afraid as if something awful might happen: 0 = Not at all Total MIRNA-7 score (0-4 normal; 5-9 mild; 10-14 moderate; 15-21 severe): 0 Source: Developed by Drs. West Cifuentes, Irena Mike, Сергей Radford and colleagues, with an educational steve from [employer]. MIRNA-7 Assessment Billing MIRNA-7 Assessment Tool: MIRNA-7 Assessment 32366 Review of Systems Const Denies body aches, Denies fatigue, Denies fever(s) and Denies weakness Eyes Details: Sees [facility] Denies change in vision ENT Denies dizziness, Denies nasal congestion, Denies nasal discharge and Denies sore throat Card Denies chest pain, Denies lightheadedness, Denies palpitations and Denies dyspnea Resp Denies chest congestion, Denies cough, Denies dyspnea and Denies wheezing GI Denies abdominal pain, Denies change in bowel habits and Denies heartburn Details: Goes to [facility] for her routine Pap and pelvic exam, last Pap was in 2021, per patient Denies urinary frequency, Denies dysuria and Denies urinary urgency Musc Reports no additional complaints Skin/Breast Denies lesions and Denies rash Neuro Denies dizziness and Denies weakness Psych Reports as per HPI Endo Denies fatigue, Denies polydipsia, Denies polyuria and Denies palpitations Shaq/Lymph Denies easy bruising Aller/Immun Denies seasonal rhinorrhea and Denies wheezing Physical exam (Primary Care) Vital Signs: Last Vital Signs Temp 98.0 F 07/18/24 11:44 Pulse 72 07/18/24 11:44 Resp 16 07/18/24 11:44 BP 120/86 07/18/24 11:44 Pulse Ox 99 07/18/24 11:44 Oxygen Delivery Method Room Air 07/18/24 11:44 BMI result Body Mass Index 30.6 Tobacco/Smoking Status: Tobacco use Status Tobacco use date assessed 07/18/24 07/18/24 11:50 Patient Tobacco Use Status Never used Tobacco 07/18/24 11:50 e-Cigarette/Vaping Use Never Used 07/18/24 11:50 PHQ-9: PHQ-9 Score PHQ-9: Total score 1 07/18/24 12:03 Depression Screening Interpretation: Negative Thrive Assessment: Date of Thrive Assessment Date Thrive assessed 07/18/24 07/18/24 11:50 Currently or been in a relationship where the following occur: No concerns rep orted Advance Care Planning discussion: Completed/Scanned Date of discussion: 07/18/24 Who was present: Patient Forms completed: Health Care Proxy Time spent: 16-45 minutes Actual minutes spent: 1 Const Other: Alert oriented x3, no acute distress noted ambulatory normal gait Orientation/consciousness: patient oriented x3 HENMT Face and sinus: Yes face symmetric Mouth: moist mucous membranes Eyes General: appearance normal, both eyes and all related structures Neck Neck: Yes full ROM, Yes no lymphadenopathy and Yes supple Thyroid: Thyroid normal Chest Chest palpation & inspection: normal inspection of the chest Breast/axilla inspection: normal inspection of the breasts Breast/axilla palpation: normal palpation of the breasts Resp Auscultation: clear to auscultation bilaterally Cardio Other: S1-S2 present regular rate and rhythm GI Palpation (GI): Soft to palpation, nontender and no guarding Auscultation: normal bowel sounds General: Yes no CVA tenderness Back/Spine/Pelvis Back: no CVA tenderness Skin Other: Erythematous rash underneath breasts General skin exam: no rashes or lesions noted Neuro General: patient oriented x3, gait normal, tone normal, moves all extremities, no focal motor deficits and CN's II-XI intact bilaterally Cognition (Neuro): normal cognition Gait exam (Neuro): Normal gait present Extrem General: Yes full ROM, Yes no joint enlargement, Yes no clubbing, cyanosis or edema, Yes no calf tenderness and Yes normal gait Psych Appearance: grossly normal and well kempt Mental Status: mental status grossly normal Speech and movement: Normal speech and movement present Affect: normal affect Attitude: cooperative Thought process: Normal thought process present Thought content: Normal thought content present Coding Level of Care Code Est Pt Prev Care 18-39y(54581) Diagnoses Annual visit for general adult medical examination with abnormal findings Z00.01 Intertrigo L30.4 Primary insomnia F51.01 Insomnia type: primary Advanced directives, counseling/discussion Z71.89 Additional Codes PHQ-9 - 32643 - PHQ-9 Billing: Yes ([id number]) Vital Signs *Quality* - Advance Care Planning discussion: Completed/Scanned ([id number]) Vital Signs *Quality* - Time spent: 16-45 minutes ([id number]) MIRNA-7 Assessment Billing - MIRNA-7 Assessment Tool: MIRNA-7 Assessment 90452 ([id number]) Assessment & Plan Assessment & Plan (1) Annual visit for general adult medical examination with abnormal findings: Code(s): Z00.01 - Encounter for general adult medical examination with abnormal findings Category: Medical Plan: Will check appropriate labs. Recommended dental visit every 6 months and reg ular eye exams, at least every 2 years, sees [facility]. Take adequate calcium in diet and vitamin-D 3 at 2000 IU per cap once a day, in addition to weight-bearing exercises to help maintain good muscle tone and weight control. Instructed to do self-breast exam, and recommended to get yearly mammogram, starting at age 40. Up-to-date with all her vaccines. Up-to-date with her cervical cancer screening, sees OBGYN (2) Intertrigo: Code(s): L30.4 - Erythema intertrigo Category: Medical Plan: Prescription sent for nystatin powder apply sparingly to affected areas under both breasts once a day as needed, keep areas clean and dry at all times prescription also sent for nystatin triamcinolone cream, to be applied to affected areas as needed for erythematous rash and itching under both breasts advised to not apply more than 10 days at a time (3) Insomnia: Code(s): G47.00 - Insomnia, unspecified Category: Medical Qualifiers: Insomnia type: primary Qualified Code(s): F51.01 - Primary insomnia Plan: Currently on zaleplon , prescribed by her psychiatrist (4) Advanced directives, counseling/discussion: Code(s): Z71.89 - Other specified counseling Plan: Initiated the conversation about Advanced Directives. Advanced Directives help patients prepare for current and future decisions about their medical treatment and place of care. Discussed with patient that it is a process where a patients current condition and prognosis are reviewed, their wishes for information regarding their illness are elicited, and likely medical dilemmas are presented and options discussed. Healthcare proxy form completed today. The form can be amended as needed, reviewed yearly and make changes as needed Medications: New nystatin-triamcinolone 100,000-0.1 unit/g-% 1 appl topical DAILY PRN 60 grams 0RF rash 10 days nystatin 1 appl topical DAILY 60 grams 1RF L30.4 - Erythema intertrigo
[2024-07-18 11:44] VITALS: BP 120/86; PULSE 72; RESP 16; TEMP 36.7; O2SAT 99; BMI 30.6
== END 2024-07-18 12:13 | disposition home or self-care (01) ==
LOC: HO.HMCC 10:57
PROVIDERS: PCP Internal Medicine; Visit Provider Internal Medicine
DX: Z00.01 Encounter for general adult medical examination with abnormal findings (principal); L30.4 Erythema intertrigo; F51.01 Primary insomnia; Z71.89 Other specified counseling; Z00.00 Encounter for general adult medical examination without abnormal findings

== ENCOUNTER 2024-07-18 10:57 | Outpatient (REF) | payer OTHER, SELFPAY ==
[2024-07-18 13:57] LABS: Hematocrit 43.2 % (37.0-47.0); Hemoglobin 14.4 g/dl (12.0-16.0)
[2024-07-18 14:41] LABS: Alanine Aminotransferase 14 U/L (0-31); Aspartate Amino Transferase 23 U/L (5-31); Cholesterol 187 mg/dL (<200); Glucose Fasting 81 mg/dL (60-99); HDL Cholesterol 61 mg/dL (>40); LDL Cholesterol Calculated 114 mg/dL (<100); Triglycerides 64 mg/dL (<150)
== END 2024-07-18 10:58 | disposition home or self-care (01) ==
LOC: HO.HMGCLDS 10:57
PROVIDERS: PCP Internal Medicine; Visit Provider Internal Medicine
DX: Z00.01 Encounter for general adult medical examination with abnormal findings (principal); L30.4 Erythema intertrigo; F51.01 Primary insomnia; Z71.89 Other specified counseling; F32.9 Major depressive disorder, single episode, unspecified; G43.009 Migraine without aura, not intractable, without status migrainosus; Z13.220 Encounter for screening for lipoid disorders; Z13.1 Encounter for screening for diabetes mellitus; Z86.39 Personal history of other endocrine, nutritional and metabolic disease
CPT/HCPCS: 36415; 80061; 82306; 82947; 84450; 84460; 85014; 85018; 96127; 99395; 99497